=== PATIENT | female | born 1950 | race Caucasian/White ===

== ENCOUNTER 2024-09-18 09:34 | Outpatient (CLI) | payer MEDICARE, SELFPAY ==
--- NOTE | 2024-09-18 09:43 | MM_ITS ---
WS: [id number] BILATERAL 3D TOMOSYNTHESIS DIGITAL DIAGNOSTIC MAMMOGRAPHY WITH CAD CLINICAL INFORMATION: LUMP HISTORY: RIGHT breast lump TECHNIQUE: Bilateral CC, MLO, and ML views. FINDINGS: Scattered fibroglandular densities bilaterally. Irregular spiculated mass deep to the RIGHT areola wi th skin thickening and nipple retraction. Spiculated lesion measures 1.8 x 1.5 cm. Ultrasound describ ed below. Unremarkable LEFT breast. ULTRASOUND BREAST RIGHT TECHNIQUE: Ultrasound right breast focused area of concern. CLINICAL INFORMATION: LUMP FINDINGS: Ultrasound subareolar RIGHT breast. Irregular spiculated subareolar mass corresponds to the mammograp hic findings. Irregular margins suspicious for surrounding parenchymal and ductal invasion. Dense sha dowing lesion highly suspicious for neoplasm. This measures approximately 2.2 x 1.5 cm. Small eccentr ic lobulation extends to the 3 o'clock position subareolar. Recommend further evaluation with ultraso und-guided biopsy. No lymphadenopathy RIGHT axilla. MM/MM diag BI tomosynthesis [id number] IMPRESSION: DENSITY: There are scattered areas of fibroglandular density. BI-RADS: 5 - Highly suggestive of Malignancy. FOLLOW UP: US Guided Biopsy Recommended Recommend ultrasound-guided biopsy RIGHT subareolar breast lesion
== END 2024-09-18 09:35 | disposition home or self-care (01) ==
PROVIDERS: PCP Family Medicine; Visit Provider Family Medicine
DX: N63.41 Unspecified lump in right breast, subareolar (principal); R92.323 Mammographic fibroglandular density, bilateral breasts
CPT/HCPCS: 76642; 77062; G0279

== ENCOUNTER 2024-12-24 12:35 | Outpatient (CLI) | payer MEDICARE, SELFPAY ==
--- NOTE | 2024-12-24 12:46 | US_ITS ---
WS: [id number] ULTRASOUND-GUIDED RIGHT BREAST BIOPSY CLINICAL INFORMATION: ABNORMAL MAMMOGRAM FINDINGS: The procedure including risks, benefits, and complications were discussed with the patient who agreed to proceed. Using sterile technique patient was prepped and draped in the usual sterile fashion. After 1% lidocaine utilizing real-time ultrasound guidance 7 14-gauge cores were obtained of the RIGHT subareolar breast lesion. No clip was placed per patient preference. US/[place] [id number] IMPRESSION: 1. Uncomplicated ultrasound-guided RIGHT subareolar breast biopsy. 2. The pathology demonstrates invasive mammary carcinoma not otherwise specifi ed nuclear grade 2. 3. Recommend breast surgery consultation. DENSITY: There are scattered areas of fibroglandular density. BI-RADS: 6 - Known Biopsy - Proven Malignancy. FOLLOW UP: Surgical Biopsy Recommended Recommend breast surgery consultation for resection.
[2024-12-30 09:13] LABS: Breast Profile ER,PR,HER2,Ki-6 See Report
== END 2024-12-24 12:36 | disposition home or self-care (01) ==
PROVIDERS: PCP Family Medicine; Visit Provider Family Medicine
DX: R92.8 Other abnormal and inconclusive findings on diagnostic imaging of breast (principal); C50.911 Malignant neoplasm of unspecified site of right female breast; R92.323 Mammographic fibroglandular density, bilateral breasts
CPT/HCPCS: 19083; 88305; 88361; 88374

== ENCOUNTER → 2024-12-30 09:55 | Outpatient (BNVA) | payer MEDICARE, SELFPAY | PROVIDERS: PCP Family Medicine; Referring Provider Family Medicine; Visit Provider Surgery | DX: C50.911 Malignant neoplasm of unspecified site of right female breast (principal) | CPT/HCPCS: 99204 ==

== ENCOUNTER 2025-01-05 08:52 | Day surgery (SDC) | payer MEDICARE, SELFPAY ==
[2025-01-05] VITALS (10 sets, daily range): BP systolic 88–175; BP diastolic 52–81; PULSE 62–79; RESP 14–18; TEMP 36.1–36.6; O2SAT 92–99; BMI 26.3
--- NOTE | 2025-01-05 09:21 | ECG_ITS ---
[facility]: 2025-[facility]05 Pat Name: Yakelin Rosales Department: Room: Gender: Female Workforce Specialist: : 1950 Requested By: Baylee Murcia Order Number: [id number] Annmarie MD: RICHIE EASON Measurements Intervals [place] Rate: 63 P: 67 TN: 150 QRS: 30 QRSD: 98 T: 52 QT: 412 QTc: 424 Interpretive Statements SINUS RHYTHM No previous ECG available for comparison Electronically Signed On 01-11-2025 21:50:08 CDT by RICHIE EASON [email or web address]
[2025-01-05] MEDS: sodium chloride 0.9% 1,000 ML 30 ML IV (09:40)
--- NOTE | 2025-01-05 09:45 | W.PM.OPSUD ---
Surgery/Procedure H&P Update DATE OF PROCEDURE: January 05, 2025 DATE H&P PERFORMED: 12/30/24 H&P UPDATE INFORMATION: I have reviewed H&P completed within last 30 days, I have examined patient prior to procedure, No changes to prior documentation, H&P is in [facility] EMR on date indicated and Risks and benefits of the procedure reviewed CHANGES TO PREVIOUS DOCUMENTATION: Patient is aware of high risk of necrosis of the nipple if we proceed with lumpectomy and is agreable with the risk. PLANNED PROCEDURE: Operation Date: 01/05/25 10:30 Proposed Procedures p partial right breast mastectomy-54920, C50.919(Right) - Jett Parekh MD
[2025-01-05 10:20] LABS: Anion Gap 13.8 (5-19); Blood Urea Nitrogen 23 mg/dL (8-23); Calcium 10.2 mg/dL (8.5-10.5); Carbon Dioxide 23 mmol/L (22-29); Chloride 106 mmol/L (98-107); Creatinine Clr Calc Pharmacy 50.9559; Glucose 106 mg/dL (65-115); Osmolality Calculated 292 mOsm/kg (285-295); Potassium 3.8 mmol/L (3.5-5.1); Sodium 139 mmol/L (136-145)
--- NOTE | 2025-01-05 11:00 | ANES.PREANE2 ---
Pre-Anesthetic Assessment Height/Weight: Height 1.7 m Weight 76.204 kg Temp Pulse Resp BP Pulse Ox O2 Del Method 97.6 F 72 16 175/81 99 Room Air 01/05/25 09:12 01/05/25 09:12 01/05/25 09:12 01/05/25 09:12 01/05/25 09:12 01/05/25 09:12 Operation Date: 01/05/25 10:30 Proposed Procedures p partial right breast mastectomy-89450, C50.919(Right) - Jett Parekh MD Familial anesthetic complications: NOne Was Beta Saul taken within 24 hours: N/A Was Clonidine taken within 24 hours: N/A Last intake: Intake Last Liquid Date 01/04/25 Last Liquid Time 20:30 Last Solid Date 01/04/25 Last Solid Time 19:00 Social No alcohol and No tobacco Exam alert, oriented x 3, clear to auscultation bilaterally and regular rate & rhythm Airway Mallampati: Class I Dentition: chipped and other (poor dentition, per patient report Theyre bad ) CV/HEM Hypertension Anesthetic Plan ASA status: 2 Anesthesia: General Risk of > 500 ml blood loss (7ml/kg in children): No Medications/Allergies Home Medications ?Medication ?Instructions ?Recorded ?Confirmed ?Last Taken ?Type amlodipine 2.5 mg tablet 2.5 mg PO DAILY 12/30/24 01/05/25 01/04/25 History losartan 100 1 tab PO DAILY 01/02/25 01/05/25 01/04/25 History mg-hydrochlorothiazide 12.5 mg tablet Allergies Allergy/AdvReac Type Severity Reaction Status Date / Time Penicillins Allergy Severe ALGY-Anaphy Verified 01/05/25 09:10 laxis Current Medications Generic Name Dose Route Start Last Admin Trade Name Freq PRN Reason Stop Dose Admin Sodium Chloride 1,000 mls @ 30 mls/hr 01/05/25 09:00 01/05/25 09:40 Sodium Chloride 0.9% IV 01/06/25 08:59 30 mls/hr .Q24H GRECIA Administration PFSH Anesthesia Social History Smoking and tobacco/nicotine status: never used tobacco/nicotine Data Anesthesia 01/05/25 09:30 BMP 01/05/25 09:30 Sodium 139 Potassium 3.8 Chloride 106 Carbon Dioxide 23 BUN 23 Creatinine 1.0 H Glucose 106 Calcium 10.2 Cardiac Studies: No Data to Display
[2025-01-05] MEDS: clindamycin 600 MG/50 ML PREMIX 50 MG IV (11:30)
[2025-01-05] MEDS: lidocaine-epi 2% PF 1:200,000 20 mL SDV (12:37)
[2025-01-05] MEDS: BUPivacaine 0.5% INJ 30 mL (12:37)
--- NOTE | 2025-01-05 12:42 | P.OP_ITS ---
Operative Report Date of procedure: January 05, 2025 Pre-op diagnosis: Right breast cancer Post-op diagnosis: Same Post-op findings: Retroareolar mass extending at 3 o'clock position measuring about 3 x 2 cm. Procedure done: Partial mastectomy Specimens removed/disposition: Right breast mass, medial margin, lateral margin, nipple Surgeon: Jett Parekh MD Business Technology Architect: ESPINOZA OR Staff Estimated blood loss: 10 Brief History: This a 75-year-old female with right breast cancer. After discussion in the clinic with have decided to proceed with a partial mastectomy. Patient was informed that since she does not want chemotherapy or radiation the most appropriate route will be to do a simple mastectomy but she does not want to have a mastectomy at this time. I have offered to proceed with a partial mastectomy and possible removal of the nipple depending of involvement Procedure: Patient was brought into the OR, she was placed in a supine position. General anesthesia was given. The right breast was prepped and draped in the usual baljeet rile fashion. Timeout was conducted. I then proceeded to make periareolar incision measuring about 4 cm in the inner lower quadrant. The incision was deepened until the breast fascia was opened, it was immediately apparent that the tumor was very superficial at the level of the retroareolar region. Despite this due to patient request I attempted to proceed with a lumpectomy by circumferentially dissecting the tumor from the breast tissue with electrocautery. After the tumor was completely dissected in a circumferential fashion I proceeded to transected from the base the tumor measured about 2 x3cm, was marked short superior and long lateral and sent to pathology. At this point was apparent that the vascularity to the nipple was compromised and in addition to that being the tumor so superficial there is high risk of invasion and therefore I decided to proceed with excision of the nipple I proceeded with elliptical incision encompassing only the nipple as the patient does not want to proceed with a full mastectomy and then I transected it with the blade. The nipple was marked with a short superior and long lateral suture. Hemostasis was achieved and the wound was irrigated. At this point I felt some induration in the medial margin of excision and proceeded to send conventionally dissect this area with electrocautery. The specimen was passed to the table and marked with a short superior and long lateral suture. On the lateral aspect of the resection margin there was minimal area of induration that I proceeded to resect and sent to pathology as lateral margin. Hemostasis was then verified. I then proceeded to irrigate the wound and local anesthesia was infiltrated. I then closed the incisions in layers using #2 Vicryl for the breast tissue, #3-0 Vicryl for the subcutaneous tissue #4-0 Monocryl for the skin. Sterile dressing was applied. At the end of the procedure all counts were correct the patient tolerated well the procedure was transferred to PACU in stable condition.
--- NOTE | 2025-01-05 14:20 | ANE.PACU2 ---
Inpatient post-anesthesia follow up: Airway intact: Yes Vital signs: Temperature 97.8 F Pulse Rate 72 Respiratory Rate 17 Blood Pressure 110/56 Pulse Oximetry 96 Oxygen Delivery Me thod Room Air Oxygen Flow Rate Fraction of Inspir ed Oxygen Hydration adequate: Yes Nausea and vomiting: No Pain level: 1 Mental status: Baseline
== END 2025-01-05 14:20 | disposition home or self-care (01) ==
PROVIDERS: Anesthesiology; PCP Family Medicine; Visit Provider Surgery
PROC: (CPT 19303; principal; 2025-01-05 10:20)
PROC: (CPT 19120; 2025-01-05 10:20)
DX: C50.011 Malignant neoplasm of nipple and areola, right female breast (principal); C50.811 Malignant neoplasm of overlapping sites of right female breast; K08.89 Other specified disorders of teeth and supporting structures; I10 Essential (primary) hypertension; Z79.899 Other long term (current) drug therapy; Z88.0 Allergy status to penicillin
CPT/HCPCS: 19301; 36415; 80048; 88307; 88342; 93005; A4216; J1100; J1885; J2405; J2704; J3010; J3490; J7030; J9999

== ENCOUNTER → 2025-01-22 13:47 | Outpatient (BNVA) | payer MEDICARE, SELFPAY | PROVIDERS: PCP Family Medicine; Visit Provider Surgery | DX: Z98.890 Other specified postprocedural states (principal); Z90.11 Acquired absence of right breast and nipple | CPT/HCPCS: 99024 ==